=== PATIENT | male | born 1960 | race Caucasian/White ===

== ENCOUNTER → 2017-01-02 | Outpatient (CLI) | payer OTHER ==
[2017-01-02 14:05] LABS: ALKALINE PHOSPHATASE 68 U/L (45-117); ALT/SGPT 43 U/L (12-78); AST/SGOT 23 U/L (15-37); BLOOD UREA NITROGEN 13 mg/dl (7-18); BUN/CREATININE RATIO 13.1 (10-20); CALCIUM 8.5 mg/dl (8.5-10.1); CARBON DIOXIDE 25 mmol/L (21-32); CHLORIDE 105 mmol/L (98-107); GLUCOSE 146 mg/dl (70-99); HDL CHOLESTEROL 43 mg/dl; POTASSIUM 4.1 mmol/L (3.5-5.1); SODIUM 141 mmol/L (136-145)
[2017-01-02 14:10] LABS: ESTIMATED AVERAGE GLUCOSE 154 mg/dl; HA1C FLAG Normal (Normal)
[2017-01-02 14:17] LABS: ALB/GLOB RATIO 0.8 (0.9-2); CHOLESTEROL 133 mg/dl (0-200); CHOLESTEROL/HDL RATIO 3.1; LDL CHOLESTEROL CALCULATED 66 mg/dl; TRIGLYCERIDES 122 mg/dl (0-150); VERY LOW DENSITY LIPOPROT CALC 24 mg/dl
== END | disposition home or self-care (01) ==
LOC: C.LABMFLN 11:14
PROVIDERS: ATTEND Family Medicine
DX: E11.9 Type 2 diabetes mellitus without complications (principal); E78.00 Pure hypercholesterolemia, unspecified; I10 Essential (primary) hypertension; R53.83 Other fatigue

== ENCOUNTER → 2017-05-17 | Outpatient (CLI) | payer OTHER ==
[2017-05-17 13:50] LABS: ESTIMATED AVERAGE GLUCOSE 163 mg/dl; HA1C FLAG Normal (Normal)
[2017-05-17 13:52] LABS: ALT/SGPT 47 U/L (12-78); BLOOD UREA NITROGEN 14 mg/dl (7-18); BUN/CREATININE RATIO 11.7 (10-20); CALCIUM 9.2 mg/dl (8.5-10.1); CARBON DIOXIDE 27 mmol/L (21-32); CHLORIDE 107 mmol/L (98-107); CHOLESTEROL 136 mg/dl (0-200); GLUCOSE 162 mg/dl (70-99); POTASSIUM 4.1 mmol/L (3.5-5.1); SODIUM 142 mmol/L (136-145); TRIGLYCERIDES 124 mg/dl (0-150); VERY LOW DENSITY LIPOPROT CALC 25 mg/dl
[2017-05-17 13:55] LABS: ALB/GLOB RATIO 0.9 (0.9-2); ALKALINE PHOSPHATASE 73 U/L (45-117); AST/SGOT 39 U/L (15-37); CHOLESTEROL/HDL RATIO 3.3; HDL CHOLESTEROL 41 mg/dl; LDL CHOLESTEROL CALCULATED 70 mg/dl
== END | disposition home or self-care (01) ==
LOC: C.LABMFLN 09:19
PROVIDERS: ATTEND Family Medicine
DX: E11.9 Type 2 diabetes mellitus without complications (principal); E78.00 Pure hypercholesterolemia, unspecified; M54.9 Dorsalgia, unspecified; I10 Essential (primary) hypertension; E66.9 Obesity, unspecified

== ENCOUNTER → 2017-09-21 | Outpatient (CLI) | payer OTHER ==
[2017-09-21 12:58] LABS: ALT/SGPT 57 U/L (12-78); AST/SGOT 62 U/L (15-37); BLOOD UREA NITROGEN 13 mg/dl (7-18); BUN/CREATININE RATIO 11.5 (10-20); CALCIUM 8.9 mg/dl (8.5-10.1); CARBON DIOXIDE 28 mmol/L (21-32); CHLORIDE 104 mmol/L (98-107); CREATININE 1.17 mg/dl (0.60-1.40); GLUCOSE 150 mg/dl (70-99); SODIUM 139 mmol/L (136-145)
[2017-09-21 13:03] LABS: ALB/GLOB RATIO 0.8 (0.9-2); ALKALINE PHOSPHATASE 76 U/L (45-117); CHOLESTEROL 140 mg/dl (0-200); CHOLESTEROL/HDL RATIO 3.3; HDL CHOLESTEROL 43 mg/dl; LDL CHOLESTEROL CALCULATED 69 mg/dl; PROSTATE SPECIFIC ANTIGEN 0.177 ng/ml (0.000-4.000); TRIGLYCERIDES 141 mg/dl (0-150); VERY LOW DENSITY LIPOPROT CALC 28 mg/dl
[2017-09-21 13:47] LABS: ESTIMATED AVERAGE GLUCOSE 146 mg/dl; HA1C FLAG Normal (Normal)
== END | disposition home or self-care (01) ==
LOC: C.LABMFLN 09:07
PROVIDERS: ATTEND Family Medicine
DX: E11.9 Type 2 diabetes mellitus without complications (principal); Z12.5 Encounter for screening for malignant neoplasm of prostate

== ENCOUNTER → 2017-09-22 | Outpatient (CLI) | payer OTHER ==
[2017-09-22 18:56] LABS: CREATININE RANDOM URINE 99.5 mg/dl
[2017-09-22 19:07] LABS: RATIO 28.2 mcg/mg (0-30.0)
== END | disposition home or self-care (01) ==
LOC: C.LABMFLN 11:13
PROVIDERS: ATTEND Family Medicine
DX: E11.9 Type 2 diabetes mellitus without complications (principal); Z12.5 Encounter for screening for malignant neoplasm of prostate

== ENCOUNTER → 2017-10-24 | Outpatient (CLI) | payer OTHER ==
[2017-10-24 18:37] LABS: BLOOD UREA NITROGEN 14 mg/dl (7-18); BUN/CREATININE RATIO 13.5 (10-20); CALCIUM 8.9 mg/dl (8.5-10.1); CARBON DIOXIDE 31 mmol/L (21-32); CHLORIDE 104 mmol/L (98-107); CREATININE 1.06 mg/dl (0.60-1.40); GLUCOSE 176 mg/dl (70-99); POTASSIUM 3.7 mmol/L (3.5-5.1); SODIUM 137 mmol/L (136-145)
== END | disposition home or self-care (01) ==
LOC: C.LABMFLN 13:03
PROVIDERS: ATTEND Physician Assistant
DX: I10 Essential (primary) hypertension (principal)

== ENCOUNTER → 2018-03-23 | Outpatient (CLI) | payer OTHER ==
[2018-03-23 13:29] LABS: HEMOGLOBIN A1C 7.6 % (4.5-5.6)
[2018-03-23 14:01] LABS: ALBUMIN 3.6 gm/dl (3.4-5.0); ALKALINE PHOSPHATASE 78 U/L (45-117); ALT/SGPT 62 U/L (12-78); AST/SGOT 62 U/L (15-37); BLOOD UREA NITROGEN 17 mg/dl (7-18); CALCIUM 8.5 mg/dl (8.5-10.1); CARBON DIOXIDE 28 mmol/L (21-32); CHOLESTEROL 132 mg/dl (0-200); CREATININE 1.16 mg/dl (0.60-1.40); GLUCOSE 210 mg/dl (70-99); LDL CHOLESTEROL CALCULATED 63 mg/dl; POTASSIUM 3.7 mmol/L (3.5-5.1); SODIUM 138 mmol/L (136-145); TOTAL PROTEIN 8.2 gm/dl (6.4-8.2)
== END | disposition home or self-care (01) ==
LOC: C.LABMFLN 09:53
PROVIDERS: ATTEND Family Medicine
DX: E11.9 Type 2 diabetes mellitus without complications (principal); E78.00 Pure hypercholesterolemia, unspecified; I48.1 Persistent atrial fibrillation; I10 Essential (primary) hypertension